=== PATIENT | male | born 2000 | race Caucasian/White ===

== ENCOUNTER 2021-10-08 20:10 | Emergency (ER) | payer OTHER, BC ==
[2021-10-08] MEDS: Take Home: Acetaminophen/HYDROcodone 325-5 MG, 5 Tab Pack PO ONE (21:54)
[2021-10-08] MEDS: Erythromycin Base 0.5% Ophth Oint 3.5 GM Tube EYEBOTH ONE (21:54)
[2021-10-08] MEDS: Take Home: Promethazine 25 MG, 4 Tab Pack PO ONE (21:54)
[2021-10-08] MEDS: Tetracaine HCl/PF 0.5% 4 ML Bottle EYELF ONE (21:55)
[2021-10-08] MEDS: Fluorescein 1 MG Ophth Strip EYEBOTH ONE (21:55)
== END 2021-10-08 22:01 | disposition home or self-care (01) ==
LOC: VM.ED 20:10
DX: T15.01XA Foreign body in cornea, right eye, initial encounter (principal)
CPT/HCPCS: 65205; 99283; A9270